=== PATIENT | female | born 1950 | race Caucasian/White ===

== ENCOUNTER → 2016-11-01 | Outpatient (CLI) | payer BC ==
[~2016-11-01] MED LIST: ASPI-586 PO; CALC-762 PO; CPR500T PO; DIPH1TAB PO; HCT25T PO; HYDR473S16 PO; LACT1TAB10 PO; METR500T PO; MULT1CAP27 PO; OMEP40CA3 PO; ONDAN4ODT SL; POTA10CA43 PO; SERT50TA PO; VITA150T PO; [UNRECOGNIZED DRUG - OTHER]; [UNRECOGNIZED DRUG - OTHER]; [UNRECOGNIZED DRUG - OTHER]; [UNRECOGNIZED DRUG - OTHER]; [UNRECOGNIZED DRUG - OTHER]
[2016-11-01 12:28] LABS: BASOPHILS % (AUTO) 0 % (0-2); EOSINOPHILS # (AUTO) 0.1 10^3uL; EOSINOPHILS % (AUTO) 1 % (0-4); LYMPHOCYTES # (AUTO) 1.9 X10^3; MEAN CORPUSCULAR HEMOGLOBIN 28.6 PG (26.0-34.0); MEAN CORPUSCULAR HGB CONC 32.2 g/dL (31.0-37.0); MEAN CORPUSCULAR VOLUME 89 FL (80-100); MEAN PLATELET VOLUME 10.3 FL (6.0-9.5); MONOCYTES # (AUTO) 0.8 X10^3; MONOCYTES % (AUTO) 8 % (3-11); NEUTROPHILS % (AUTO) 71 % (51-67); PLATELET COUNT 237 10^3uL (150-450); WHITE BLOOD COUNT 9.83 10^3uL (4.0-11.0)
[2016-11-01 12:41] LABS: ALBUMIN 4.2 g/dL (3.4-5.0); ANION GAP 15.1 MEQ/L (3-15); CALCULATED IONIZED CALCIUM 3.9 mg/dL (3.8-4.6); TOTAL PROTEIN 7.6 g/dL (6.4-8.5)
== END ==
LOC: LAB 12:12
PROVIDERS: ATTEND Family Medicine
DX: R10.84 Generalized abdominal pain (principal)
CPT/HCPCS: 36415; 80053; 82150; 83690; 85025; 86140; 87045; 87046; 87177; 87209; 87324; 87449